=== PATIENT | female | born 1975 | race Caucasian/White ===

== ENCOUNTER → 2017-12-07 | Outpatient (CLI) | payer BC ==
[~2017-12-07] VITALS: Ht 165.1 cm; Wt 74.8 kg
[~2017-12-07] MED LIST: ADDERALL 20 MG20 M1 PO; ATIVAN1 MG PO; HYSINGLA ER80 MG PO; NAPROSYN500 MG PO; NORTRIPTYLINE H25 M3 PO; SYNTHROID175 MCG PO
--- NOTE | ~2017-12-07 | HPC ---
[facility] [place] [address] PAIN MANAGEMENT CONSULTATION Name: IGNACIO ESTEVEZ [facility] [id number] Admission: 12/07/17 Attend Phys: John Simms DO Discharge: Date of : 75 Report #: [id number] THIS REPORT FOR: //name// CC: Soham Simms DATE OF SERVICE: 12/07/2017 REFERRING PHYSICIAN: Dr. Soham Munoz. CHIEF COMPLAINT: Generalized body pain. HISTORY OF PRESENT ILLNESS: As you know, the patient is a very unfortunate 42-year-old female with longstanding history of generalized body pain. She indicates in her notes that her pain began at the age of 7 and progressively worsened. She has multiple injuries sustained over a 30-year period, she believes have exacerbated her symptoms. She reports within the available write up that she has had extreme issues with hypersensitivity responses. The patient was started on Hysingla by her primary care physician and escalated to a dose of 80 mg once a day for unknown pain etiology, but believed to be due to underlying mild osteoarthritis. The patient had been treated with Hysingla for a very long period of time. Apparently, her primary care physician retired, and she sought evaluation and treatment from another primary care team who continued the patient on her Hysingla and referred her to our clinic to discuss her ongoing pain issues so that we can provide suggestions for treatment options. She indicates today her pain is continuous, steady and constant, describes the pain as burning, shooting, aching, sharp, stabbing, tender, places current pain score 4/10, daily average of 4-6/10, worst the pain has been 10/10. The patient indicates her pain is due to "lifetime injury." She indicates that her pain is exacerbated with weather, work situation, standing, lying down, improves with yoga, hot showers, Hysingla massage, stretching and naproxen sodium. The patient states she sought evaluation from a chiropractor as well as undergone full physical therapy. She indicates that Dr. Turcios started the patient on Hysingla years ago, and she is continued on this therapy. She tried Lyrica at one point in time and states she had side effects of rash and hypersensitivity reaction, so she discontinued its use. She has been referred to our clinic to review her case and determine the source of pain and determine if there are any treatment options available to address symptoms. PAST MEDICAL HISTORY: 1. Hypothyroidism. 2. Osteoarthritis. 3. Generalized pain disorder. 4. Anxiety disorder. [address] [address] PAIN MANAGEMENT CONSULTATION Name: IGNACIO ESTEVEZ Room #: REG [facility] Ngozi#: [id number] Admission: 12/07/17 Attend Phys: John Simms DO Discharge: Date of : 75 Report #: [id number] PAST SURGICAL HISTORY: 1. Tympanoplasty in 1992. 2. Open reduction internal fixation of ankle. 3. D and C in 2009 secondary to miscarriage. 4. D and C in 2016 for blighted ovum. SOCIAL HISTORY: The patient denies IV or illicit drug use. Denies any chronic alcohol use. She smokes less than 1 pack tobacco per day and has done so for 10 years. 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 She indicates that she is working currently, not receiving workmen's compensation. She is not in litigation in regards to her pain. She is unaccompanied at today's visit. REVIEW OF SYSTEMS: Positive for weight gain, fatigue and weakness, tinnitus, shortness of breath, anxiety, rectal bleeding, kidney stones, lightheadedness and dizziness, numbness and tingling sensations, head injury, nervousness, depression, insomnia, thyroid disease, heat and cold intolerance, generalized body pain, anxiety disorder, attention deficit disorder, opioid habituation, tobacco habituation. All other review of systems negative per 12-point review of systems other than those listed in history of present illness. Pain impact score 48/70, indicating moderate to severe interference in daily activities secondary to pain. ALLERGIES: ETHER, CEPHALEXIN, TAMIFLU, PREGABALIN. CURRENT MEDICATIONS: Lorazepam 1 mg twice a day, Adderall 20 mg twice a day, naproxen 500 mg twice a day, Hysingla ER 80 mg once a day, levothyroxine 175 mcg per day. IMAGING: X-ray of cervical spine obtained on 09/08/2016, shows facet and uncovertebral hypertrophy at C5-C6, C6-C7, mild disk loss and degenerative changes at C5, C6, C7. The degenerative changes noted to be mild. Thoracic radiographs 09/08/2016, no fracture, traumatic subluxation, right mild convexity curvature approximately 20 degrees. X-ray lumbar spine, 09/08/2016, scoliosis, mild degenerative changes at L4-L5 and L5-S1. PQRS: The patient has mild osteoarthritis. No rheumatoid arthritis. Pain intensity is rated today 4-6/10. She is not a fall risk, has not had a fall in the last 3 months. She is not on blood thinner. She is not treated for hypertension. She has been on opioids for greater than 6 weeks, contracted to another physician. Opioid risk assessment tool moderate, risk of opioid [facility] [address] [place] [address] PAIN MANAGEMENT CONSULTATION Name: IGNACIO ESTEVEZ Room #: REG [facility]#: [id number] Admission: 12/07/17 Attend Phys: John Simms DO Discharge: Date of : 75 Report #: [id number] addiction. Functional assessment tool 48/70, indicating moderate to severe interference in daily activities secondary to pain. PHYSICAL EXAMINATION: VITAL SIGNS: Blood pressure 124/71, pulse 91, respiratory rate 14, unlabored. The patient is 98% on room air. Height 5 feet 5 inches tall, weight 165 pounds, BMI calculated 27.5. GENERAL: Well-developed, well-nourished, well-hydrated, emotionally labile 42-year-old female. She appears her stated age, placing current pain score at 4-6/10. She smells strongly of tobacco smoke. HEENT: Normocephalic, atraumatic. Pupils equal, round, reactive to light. Extraocular muscles are intact. Sclerae nonicteric without injection. NEUROLOGIC: Cranial nerves 2-12 grossly intact. Speech is fluent. LUNGS: Clear to auscultation bilaterally, no wheeze, rhonchi or rales. Mildly prolonged expiratory phase. CARDIOVASCULAR: Regular. No appreciable gallop, no rub. ABDOMEN: Soft, nontender, mildly obese, normoactive bowel sounds. EXTREMITIES: Show no clubbing, no cyanosis, no edema. MUSCULOSKELETAL: The patient is tender to palpation of 18 tender points indicative of myofascial pain syndrome such as fibromyalgia. The patient's upper extremity strength, lower extremity strength equal and symmetrical 5/5. The patient is intact to light touch from C5-T1 dermatomes in the cervical region, T1 through T12 dermatomes in the thoracic region and L1 through S2 dermatomes in the lumbar region. Deep tendon reflexes are symmetrical at biceps, brachioradialis and triceps, 2+/4 and symmetrical. Also, symmetrical deep tendon reflexes at patella and Achilles, 2+/4. Spurling test is negative. The patient is noticing mild palpatory tenderness over the cervical region. No spinous process tenderness. No change in range of motion from left to right. There is palpatory tenderness over the paraspinal musculature of the thoracic spine, noted a scoliotic curvature. No spinous process tenderness. Seated straight leg raising negative. Supine straight leg raising negative. Arlin test negative. Modified Gaenslen's positive for some axial low back pain. Ankle clonus negative. Babinski is negative. ASSESSMENT: 1. Myofascial pain. 2. Cervicalgia. 3. Chronic low back pain. 4. Opioid dependency. 5. Tobacco habituation. PLAN: 1. Based on today's physical exam, history the patient has provided, the description the patient uses in regards to pain [place] [address] PAIN MANAGEMENT CONSULTATION Name: IGNACIO ESTEVEZ CONOR Room #: REG [facility] Melvin#: [id number] Admission: 12/07/17 Attend Phys: John Simms DO Discharge: Date of : 75 Report #: [id number] of symptoms and the finding on physical exam showing 18 of 18 tender points indicative of myofascial pain such as fibromyalgia-like source of the patient's pain symptoms. I have discussed with the patient the treatment options for fibromyalgia based on CDC's recommended guidelines. These would include a concerted and consistent exercise program on a daily basis utilizing aqua- therapy and land-based therapy. We discussed appropriate medications per CDC evidence based medicine including nortriptyline, amitriptyline, gabapentin, Cymbalta and Savella. The patient has been trialled on Lyrica and apparently had side effects of hypersensitivity and rash. We also discussed the CDC's recommendations of only utilizing tramadol and no other opioid in fibromyalgia. In fact, in fibromyalgia, opioids are a relatively contraindicated. We did provide the patient with the information from the CDC on the evidence based medicine treatment for fibromyalgia. We also gave the patient articles on adjunctive treatment options for fibromyalgia symptoms. We did discuss this with the patient today. I believe appropriate treatment for her generalized pain disorder is necessary. I have had a long discussion with the patient about what the CDC indicates as appropriate and what the CDC indicates as inappropriate for fibromyalgia, and we have adjusted her medications to reflect appropriate evidence based medicine for fibromyalgia treatment and myofascial pain syndrome. 2. The patient was provided a prescription of nortriptyline 25 mg dose. We will begin 1 tab p.o. bedtime. Continue for 7 nights, increase to 2 tabs p.o. at bedtime for 7 nights, then 3 tabs p.o. at bedtime for 7 nights. We have given the patient #90 tablets, advised the patient during the titration of medication, if she notes improvement in symptoms, stabilize at that dose, no further escalation. She is to watch for any side effects of somnolence, decreased mental acuity, disorientation, confusion or any type of allergic response. If this is the case, discontinue immediately and call our clinic. We have given the patient this prescription with no refills, one month worth of medication. 3. We have discussed with the patient the original referral about cervical issues. I am unable to elicit any cervical issues that would require interventional treatments. She has some myofascial symptoms in the cervical region and mild arthritic changes which are typical for 42-year-old individuals. Stretching exercises, core strengthening and traction techniques we recommend. We do not at this point recommend interventional treatments such as intra-articular facet injections or cervical epidural injections. We did discuss that if her underlying generalized pain disorder is secondary to fibromyalgia or any other myofascial pain syndrome that a steroid exposures can exacerbate her symptoms and make pain much more intense. This is typically seen with fibromyalgia patients, and we have warned her of such today. Again, we do not see any interventional treatment that would be necessary in this patient's case. 4. The patient has requested to discuss further Hysingla therapy. Apparently, she was started on this medication by her primary care physician, though I believe the physician had good intentions, unfortunately, the treatment that is [address] [address] PAIN MANAGEMENT CONSULTATION Name: IGNACIO ESTEVEZ Room #: REG [facility] Melvin#: [id number] Admission: 12/07/17 Attend Phys: John Simms DO Discharge: Date of : 75 Report #: [id number] being provided does not follow the evidence based medicine, and we would not recommend Hysingla therapy. She is on excessively high doses of Hysingla 80 mg once a day well over what would be recommended for 42-year-old female with only mild arthritic changes and a generalized pain disorder due to fibromyalgia-like symptoms. Again, we do not recommend opioid medications in younger individuals suffering from myofascial pain syndromes. This is based on the CDC's evidence-based guidelines for treatment, and we do not recommend them. We have advised the patient of this today. 5. The patient and I did discuss at length the Hysingla medication that she is currently on. Unfortunately, the patient has been escalated to a dose of medication that is well above what would be recommended for any individual, specifically an individual suffering from the symptoms the patient is currently reporting. We recommenedd to the patient that if she wishes to remain on these medications, she can contact her primary care physician who initiated therapy, and she may continue on the medication with their prescriptions. Other option would be for her to return to her PCP and begin weaning protocol of 20 mg every 2 weeks, coming off the Hysingla in about 8 weeks. Recommend a reduction by 20 mg every 2 weeks, beginning as quickly as possible, reducing to 60 mg for 2 weeks, then 40 mg for 2 weeks, then 20 mg for 2 weeks and then off the medication entirely. This would be a recommended weaning dosing of therapy. These suggestions were provided to the patient today. She will need to follow up with the prescribing physician to determine which course of treatment they recommend for her case. 6. The patient will return to our clinic in one month. At that time, review the efficacy of the nortriptyline initiated today. If this is ineffective or subtherapeutic, we may increase this medication. There is a possibility we may adjust her medications to either Cymbalta or Savella depending on efficacy from a generalized pain disorder standpoint. We will see the patient back in 1 month. 7. The patient and I had a long discussion about smoking cessation. I did advise the patient that treatment for myofascial symptoms are directly related to appropriate choices in health related issues. Smoking is contraindicated in individuals with chronic pain. In fact, there has been direct links between tobacco habituation and effects on chronic pain. This is shown through the descending pain pathway. I have advised the patient of such today. She will need to become a nonsmoker as quickly as possible to continue treatment with [facility] in regards to myofascial symptoms. The patient was offered assistance to discontinue smoking including medical management as well as referrals to smoking cessation facilities and programs. 8. We wish to thank you for the opportunity to see the patient in consultation. After evaluation, we have determined that the patient has underlying fibromyalgia as the source of her generalized pain disorder. We are treating her symptoms based on the CDC recommendations for treatment for generalized myofascial pain secondary to fibromyalgia-like symptoms. These guidelines are available on the CDC website or can be provided to you upon request. Again, we wish to thank you for the opportunity to see the patient in consultation. We [address] [address] PAIN MANAGEMENT CONSULTATION Name: IGNACIO ESTEVEZ [facility] [id number] Admission: 12/07/17 Attend Phys: John Simms DO Discharge: Date of : 75 Report #: [id number] will keep you apprised of any other changes in medical therapy or treatment options we deem appropriate to treat her ongoing generalized pain disorder. Again, we wish to thank you for the opportunity to see her in consultation. <ELECTRONICALLY SIGNED> By: John Simms DO 12/08/17 [id number] John Simms DO /nt
[2017-12-07 09:20] VITALS: BP 124/71
== END ==
LOC: PAIN 09:03
DX: M54.5 Low back pain (principal); M54.2 Cervicalgia; G89.29 Other chronic pain; F17.200 Nicotine dependence, unspecified, uncomplicated; Z79.891 Long term (current) use of opiate analgesic

== ENCOUNTER → 2017-12-28 | Outpatient (CLI) | payer BC ==
[~2017-12-28] VITALS: Ht 165.1 cm; Wt 76.7 kg
[~2017-12-28] MED LIST changes: +CYMBALTA60 MG PO; +HYSINGLA ER60 MG PO
--- NOTE | ~2017-12-28 | HPC ---
[facility] [place] [address] PAIN MANAGEMENT CONSULTATION Name: IGNACIO ESTEVEZ Room #: REG [facility].#: [id number] Admission: 12/28/17 Attend Phys: John Simms DO Discharge: Date of : 75 Report #: [id number] THIS REPORT FOR: //name// CC: Soham Simms DATE OF SERVICE: 12/28/2017 REFERRING PHYSICIAN: Soham Munoz MD. CHIEF COMPLAINT: Generalized body pain. HISTORY OF PRESENT ILLNESS: As you know, the patient is a very unfortunate 42-year-old female who was seen in consultation per the request of Dr. Munoz on 12/07/2017. At that visit, the patient was diagnosed with fibromyalgia, chronic cervicalgia, chronic low back pain, opioid dependency and chronic tobacco habituation. The patient and I had a very long discussion at that first visit on 12/07/2017, where we advised her that opioid use was not appropriate in fibromyalgia cases. In fact, CDC recommends that no opioid be provided except for the opioid like medication tramadol. Adjunctive therapy such as nortriptyline, amitriptyline, Cymbalta, Savella, Lyrica and gabapentin are the only acceptable medications. At the end of our conversation at our visit of 12/07/2017, I advised the patient that we would be unwilling to provide Hysingla therapy as this was not an appropriate choice, and I referred the patient back to her primary care. It has come to our attention that her primary care physician who initiated this therapy is no longer available. The patient had changed her care over to Dr. Munoz, and this is what prompted a referral. I have had the patient return today to assist Dr. Munoz in weaning this patient off her opioids. We will stabilize her at the lowest most effective dose of medication and then return her care to her primary care team. She has returned today to begin weaning of opioid medications. Today, the patient is placing pain score 3/10. She states her pain is generalized in nature, has been present since 2016. She describes the pain as deep tightness, rubber band-like sensations with burning and cramping. She believes the yoga, massage, hot and cold therapy and stretching appears to improve pain. She returns today to begin weaning process. She does note that the Cymbalta added at our initial visit has been effective for her anxiety, depression and her generalized pain. ALLERGIES: ETHER, CEPHALEXIN, TAMIFLU, PREGABALIN. CURRENT MEDICATIONS: Lorazepam 1 mg twice a day, Adderall 20 mg twice a day, naproxen 500 mg twice a day, Hysingla 80 mg once a day, levothyroxine 175 mcg per day. SOCIAL HISTORY: The patient continues to deny IV or illicit drug use. [address] [address] PAIN MANAGEMENT CONSULTATION Name: IGNACIO ESTEVEZ Room #: REG [facility] Ngozi#: [id number] Admission: 12/28/17 Attend Phys: John Simms DO Discharge: Date of : 75 Report #: [id number] any chronic alcohol use. She smokes a pack or less of cigarettes per day and has done so for 10 years. She is working part-time, but discontinued her main a substantial gainful employment due to ongoing pain issues. She returns today for adjustments in therapy. PHYSICAL EXAMINATION: VITAL SIGNS: Blood pressure 103/94, pulse 93, respiratory rate 14, unlabored. The patient is 98% on room air. Height 5 feet 5 inches tall, weight 169.2 pounds, BMI calculated at 28.2. GENERAL: Well-developed, well-nourished, well-hydrated exogenously obese 42-year-old female. She is appearing stated age, placing current pain score around 3/10. HEENT: Normocephalic, atraumatic. Pupils equal, round, reactive to light. EXTREMITIES: Show no clubbing, no cyanosis, no edema. MUSCULOSKELETAL: Tender to palpation of 18/18 tender points indicative of myofascial pain syndrome such as fibromyalgia. Upper extremity strength, lower extremity strength are symmetrical and strength 5/5. Deep tendon reflexes 2+/4 at biceps, brachioradialis, triceps, patellar and Achilles. ASSESSMENT: 1. Myofascial pain. 2. Chronic cervicalgia. 3. Chronic low back pain. 4. Opioid dependency. 5. Tobacco habituation. 6. Chronic intractable pain. PLAN: 1. The patient has returned today in followup visit indicating that the primary care team who initiated the Hysingla therapy is no longer available or will not return her calls. This leaves the patient in a situation of medical legal abandonment. I have discussed this with the patient today the act of leaving the patient without coverage for her Hysingla is a medical legal issue and can be contested in the court if necessary. The patient has been referred to our clinic, and we provided appropriate suggestions for treatment, but had indicated that Hysingla therapy for fibromyalgia was a wholly inappropriate treatment option. According to the CDC, opioids are a relative contraindication for treatment in fibromyalgia conditions. Unfortunately, the patient is unable to receive her refill of medications, either the physician is no longer practicing or is unwilling to contact the patient back, which has placed the patient in a situation of abandonment. Due to concerns of withdrawal and potential side effects of rapid discontinuation of an opioid, we have agreed to take on the weaning process, though once again we strongly disagree with use of opioids in fibromyalgia patients. This is obviously a case of good intentions gone bad and a lack of full understanding of treatment for the fibromyalgia process. We have made the following changes in medication therapy to assist the patient to wean [facility] [address] [place] [address] PAIN MANAGEMENT CONSULTATION Name: ZENAIDAIGNACIOPEGGY PERDOMO Room #: REG CLKarina Melvin#: [id number] Admission: 12/28/17 Attend Phys: John Simms DO Discharge: Date of : 75 Report #: [id number] off opioids. We have placed her on an appropriate medication for her generalized pain disorder in the form of Cymbalta, may make adjustments in this therapy. 2. The patient was provided a prescription of Hysingla 60 mg dose, 20 mg decrease in her hydrocodone per day. The 60 mg dose will be provided for 20 days. She was given #20 of the 60 mg tablets with plan to decrease to 40 mg in her next visit for 20 days, then 30 mg for 20 days at the following visit, 20 mg for the following visit and 10 mg for the following visit, coming off the Hysingla entirely. We will see her back in 2 weeks for the continuation of the weaning process. 3. The patient has been started on Cymbalta, initially 30 mg dose, with escalation to 60 mg. She has noted improvement in her depression, she has noted an improvement in her anxiety issues and she has noted improvement in her pain. This is an appropriate treatment for fibromyalgia symptoms. 4. We will see the patient back in followup visit in 20 days to continue the weaning process from the medications started by the patient's initial by primary care physician, Dr. Lan. By: 0741 [id number] John Simms DO /nt
[2017-12-28 08:31] VITALS: BP 103/94
== END ==
LOC: PAIN 07:02
DX: M79.1 Myalgia (principal); G89.29 Other chronic pain; M54.2 Cervicalgia; M54.5 Low back pain; F17.200 Nicotine dependence, unspecified, uncomplicated; F11.20 Opioid dependence, uncomplicated; Z88.1 Allergy status to other antibiotic agents; Z88.8 Allergy status to other drugs, medicaments and biological substances

== ENCOUNTER → 2018-02-22 | Outpatient (CLI) | payer BC ==
[~2018-02-22] VITALS: Ht 165.1 cm; Wt 77.8 kg
[~2018-02-22] MED LIST changes: +ADDERALL XR 2020 MG PO; +BUSPIRONE HCL5 MG PO; +CYMBALTA30 MG PO; +HYSINGLA ER20 MG PO; +HYSINGLA ER30 MG PO; +HYSINGLA ER40 MG PO; +LIORESAL 10 MG10 MG PO
--- NOTE | ~2018-02-22 | HPC ---
[facility] [place] [address] PAIN MANAGEMENT CONSULTATION Name: IGNACIO ESTEVEZ Room #: REG [facility].#: [id number] Admission: 02/22/18 Attend Phys: John Simms DO Discharge: Date of : 75 Report #: [id number] THIS REPORT FOR: //name// CC: Soham Simms DATE OF SERVICE: 02/22/2018 CHIEF COMPLAINT: Generalized body pain, neck pain and right head pain. HISTORY OF PRESENT ILLNESS: As you know, the patient is a 42-year-old female who returns today in followup visit for continuation of weaning from Hysingla. She is now at 30 mg once a day down from a total of 80 mg a day. We have slowly reduced her medication and she returns today for next reduction in therapy from 30 mg to 20 mg. She is also on Cymbalta, which she is finding good efficacy at 120 mg dosing. She states she notes significant improvement in her generalized pain and anxiety as well as depression. She is extremely pleased with response to the treatment. She has had increasing neck pain and right head pain that has begun to return. 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 The ergonomics of her workstation is not appropriate. She returns to discuss this and continuation of the weaning of Hysingla. ALLERGIES: ETHER, CEPHALEXIN, TAMIFLU AND PREGABALIN. CURRENT MEDICATIONS: Lorazepam, Adderall, naproxen, Hysingla, levothyroxine and Cymbalta. SOCIAL HISTORY: The patient denies IV or illicit drug use. Denies any chronic alcohol use. She smokes about one pack per day. She has done so for greater than 10 years. She is working, not receiving workmen's compensation, unaccompanied today. IMAGING: No new imaging available. PHYSICAL EXAMINATION: VITAL SIGNS: Blood pressure 139/94, pulse 86 and respiratory rate 16, unlabored. The patient is 98% on room air. Height 5 feet 5 inches tall, weight 171.6 pounds and BMI calculated 28.6. GENERAL: Well-developed, well-nourished, well-hydrated 42-year-old female appearing stated age placing current pain score at no greater than 6/10. HEENT: Normocephalic and atraumatic. Pupils are equal, round and reactive to light. EXTREMITIES: Show no clubbing, no cyanosis and no edema. MUSCULOSKELETAL: There is palpatory tenderness [place] [address] PAIN MANAGEMENT CONSULTATION Name: IGNACIO ESTEVEZ [id number] Admission: 02/22/18 Attend Phys: John Simms DO Discharge: Date of : 75 Report #: [id number] of the upper thoracic and lower cervical area. This appears to be related to myofascial symptoms. Palpatory tenderness is radiating up the cervical paraspinal musculature to the occiput. Deep palpation of this area causes radiation of pain over the top of the head in a typical third occipital nerve distribution. ASSESSMENT: 1. Generalized pain disorder. 2. Cervicalgia. 3. Myofascial pain. 4. Opioid dependency. 5. Tobacco habituation. 6. Chronic intractable pain. PLAN: 1. The patient returns today in followup visit indicating no change in overall pain from a standpoint of Hysingla therapy. She has been able to wean all the way down to 30 mg once a day down from 80 mg originally. She returns today to continue the weaning of opioids to 20 mg for the next 20 days, then off the hydrocodone entirely. I am pleased with the response to the recommended treatment and her lack of significant pain improvement with the weaning of opioids. She is extremely pleased with being able to come off these medications as not only were they costly, but also lead to somnolence, decrease mental acuity, disorientation and increasing depression. She is excited to ultimately get off opioids. 2. The patient was provided a prescription of Hysingla 20 mg dose 1 tab p.o. q. day. I have given the patient #20 tablets. This will continue the weaning of her Hysingla. She will fill this prescription as quickly as possible. 3. The patient will continue on Cymbalta 120 mg once a day. This has been quite effective at alleviating the patient's depression and her pain. She is extremely pleased with response. She does not need refills at this time, but may ultimately need another prescription provided. She can contact our clinic and we can provide this via telephone to her local pharmacy. 4. The patient and I discussed cervicogenic symptoms that she is having. It appears that it is radiating from the paraspinal musculature of the trapezius on the right and affecting the splenius capitis on the right as well. We discussed the possibility of the muscle relaxant last visit. Unfortunately, the patient was unable to afford the baclofen at this time. She had not filled this prescription. I have advised the patient to start with this prescription initially and determine if she can take this medication that in conjunction with changes in her workstation that we discussed today. The patient will make these adjustments and fill the baclofen and begin therapy to try to treat this cervicogenic headache. If this is ineffective, I would look towards trigger point injections and possible third occipital nerve blocks. 5. I am pleased to see the patient is doing well from an opioid weaning standpoint. We will continue the titration as indicated in our first [facility] [address] [place] [address] PAIN MANAGEMENT CONSULTATION Name: IGNACIO ESTEVEZ [id number] Admission: 02/22/18 Attend Phys: John Simms DO Discharge: Date of : 75 Report #: [id number] evaluation. We will make adjustments in her other treatment options for the neck pain if it continues to present. We strongly suggest the baclofen therapy as well as possible trigger points. Acupuncture therapy could also be considered. <ELECTRONICALLY SIGNED> By: John Simms DO 02/23/18 [id number] John Simms DO /nt
[2018-02-22 12:53] VITALS: BP 139/94
== END ==
LOC: PAIN 07:05
DX: M54.2 Cervicalgia (principal); G89.4 Chronic pain syndrome; M79.1 Myalgia; F11.20 Opioid dependence, uncomplicated; F17.200 Nicotine dependence, unspecified, uncomplicated